=== PATIENT | female | born 1935 | race Caucasian/White ===

== ENCOUNTER → 2017-06-25 | Outpatient (CLI) | payer OTHER | LOC: GIMAGING 11:17 | PROVIDERS: ATTEND Nurse Practitioner | DX: J40 Bronchitis, not specified as acute or chronic (principal) | CPT/HCPCS: 71020-PO ==

== ENCOUNTER 2018-07-28 10:33 | Observation (INO) | payer OTHER ==
--- NOTE | 2018-07-28 11:13 | EDPHY ---
H & P Stated Complaint: "vertigo" x 1 week, generilized weakness x 2-3 days - Personal History Current Tetanus Diphtheria and Acellular Pertussis (TDAP): No - Medical/Surgical History Hx Asthma: No Hx Chronic Respiratory Disease: No Hx Diabetes: No Hx Cardiac Disease: No Hx Renal Disease: No Hx Cirrhosis: No Hx Alcoholism: No Hx HIV/AIDS: No Hx Splenectomy or Spleen Trauma: No Other PMH: depression - Social History Smoking Status: Never smoked Time Seen by Provider: 07/28/18 10:47 HPI/ROS: CHIEF COMPLAINT: "I've got vertigo" HISTORY OF PRESENT ILLNESS: 83-year-old female generally healthy complaining of 7 days of non thunderclap headache, dizziness. The patient describes no specific pattern to her dizziness, describing that sometimes she was her head she will experience however most the time she is sitting still she just feels as if she is listing to 1 side and needs to balance herself. She also notes that her legs do not seem to function as they normally do for the past 2 days. No history of head injury. No history neck manipulation or trauma. Her has been assisting her at home PRIMARY CARE PROVIDER: Dr. Natalia Vivas REVIEW OF SYSTEMS: 10 systems reviewed and negative with the exception of the elements mentioned in the history of present illness PAST MEDICAL & SURGICAL HISTORY: No anticoagulant use. SOCIAL HISTORY: . PHYSICAL EXAM (Prior to examination, patient consented to physical exam, hands were washed and my usual and customary physical exam procedures followed) 1) GENERAL: Well-developed, well-nourished, alert and oriented. Appears to be in no acute distress. 2) HEAD: Normocephalic, atraumatic 3) HEENT: Pupils equal, round, reactive to light bilaterally. Sclera anicteric. Nasopharynx, oropharynx, clear, no lesions. MoistDry mucous membranes. Ears bilaterally with normal tympanic membranes. 4) NECK: Full range of motion, no meningeal signs. 5) LUNGS: Clear auscultation bilaterally, no wheezes, no rhonchi, no retractions. 6) HEART: Regular rate and rhythm, no murmur, no heave, no gallop. 7) ABDOMEN: No guarding, no rebound, no focal tenderness, negative McBurney's, negative Melendez's, negative Rovsing's, negative peritoneal sign, 8) MUSCULOSKELETAL: Moving all extremities, no focal areas of tenderness, no obvious trauma. No peripheral edema or discoloration. 9) BACK: No CVA tenderness, no midline vertebral tenderness, no fluctuance, no step-off, no obvious trauma, no visual or palpable abnormality. 10) SKIN: No rash, no petechiae. 11) Psychiatric: Patient is oriented X 3, there is no agitation. 12) NEURO: Awake, alert, and oriented to person, place and time. Answers questions appropriately. There were no obvious focal neurologic abnormalities. No cerebellar dysfunction. Cranial nerves 2 through to 12 intact. Unable to ambulate without leaning on other individual. Upper and lower extremities bilaterally with strength 5 / 5, reflexes 2+. DIFFERENTIAL DIAGNOSIS: In no particular order including but not limited to benign positional vertigo, Meniere disease, malignancy, intracranial hemorrhage , cerebellar stroke (Fabián,Bharti Maria E) Constitutional: Initial Vital Signs Temperature (C) 36.5 C 07/28/18 10:40 Heart Rate 68 07/28/18 10:40 Respiratory Rate 16 07/28/18 10:40 Blood Pressure 162/87 H 07/28/18 10:40 O2 Sat (%) 97 07/28/18 10:40 O2 Delivery Mode Room Air Allergies/Adverse Reactions: amoxicillin trihydrate [From Augmentin] Allergy (Intermediate, Verified 15:13) SYNCOPE/NAUSEA potassium clavula *RETIRED-04/16/12 [From Augmentin] Allergy (Intermediate, Verified 06/03/10 15:13) SYNCOPE/NAUSEA codeine [Codeine] Allergy (Unknown, Verified 06/03/10 15:13) lisinopril Allergy (Verified 07/28/18 10:42) CATS/DOGS/BIRDS Allergy (Mild, Uncoded 06/03/10 15:14) NASAL CONGESTION ENVIRONMENTAL Allergy (Mild, Uncoded 06/03/10 15:15) NASAL CONGESTION POLLENS Allergy (Mild, Uncoded 06/03/10 15:14) NASAL CONGESTION Home Medications: Medication Instructions Recorded Albuterol [Proventil Inhaler HFA 1 - 2 puffs IH Q4H PRN 07/28/18 (*)] Aspirin EC [Aspirin EC 81 mg (*)] 81 mg PO HS 07/28/18 Dimenhydrinate [Dramamine] 25 mg PO DAILY PRN 07/28/18 Ibuprofen [Motrin (*)] 200 mg PO Q4 PRN 07/28/18 PARoxetine HCL [Paroxetine ER] 12.5 mg PO DAILY 07/28/18 cycloSPORINE 0.05% [Restasis Opht 1 drop EACHEYE HS 07/28/18 Drops(*)] Medical Decision Making - Diagnostics Imaging Results: Imaging Impressions Head CT 07/28/18 11:30 Impression: 1. Chronic sinus changes, greatest involving the maxillary sinuses. 2. Prominent left external auditory canal cerumen. Results called to WINNIE Zhang at 1:08 PM. General information for patients regarding this examination can be found at [employer]. If you have questions or comments about this report, please contact me at (hospital) or [phone] (cell). Head CTA 07/28/18 11:30 Impression: Negative CT angiogram of the brain. No source for dizziness identified. Results discussed with WINNIE Zhang at 1:27 PM. Images reviewed myself (Bharti Lockwood) ED Course/Re-evaluation: 2:40 p.m. I I spoke with the patient about her symptoms which are concerning for posterior CVA. These were not easily be seen on the CT scan. I recommended admission and sedation for MRI. She agreed with this plan. (Arun Fisher) 11:11 a.m.: I have evaluated the patient. She is complaining of dizziness and listing to the side for the past 7 days as well as feeling that legs are not functioning as a normally should. She has no focal neurologic deficits on exam. Recommended MRI. Patient is adamant that she cannot have an MRI due to claustrophobia. She agrees only to a CT scan of the head as well as basic laboratory studies. I discussed limitations of CT imaging with the patient. I believe her to have decision-making capacity. She is a retired nurse. 2:07 p.m.: Re-evaluation. Reviewed the patient her imaging studies. She remains symptomatic. Once again, I recommended MRI and admission however she declines this. I believe her to have decision-making capacity. States that she would like to follow up on outpatient basis with a neurologist. Informed the patient that if she return to the ER at any point for re-evaluation. This conversation was witnessed by her . She would like to know whether she could see neurologist next week (today is Monday). Will contact Neurology. 2:15 p.m.: Phone consultation Dr. Homer Alarcon who agrees to see the patient 2:35 p.m.: Patient was seen exam by Dr. Arun Fisher in the ER and patient agrees to admission to hospital (Bharti Lockwood) - Data Points Laboratory Results: Laboratory Results 07/28/18 11:25 07/28/18 11:25 07/28/18 07/28/18 07/28/18 12:02 11:25 11:25 WBC 6.36 10^3/uL 10^3/uL (3.80-9.50) RBC 4.59 10^6/uL 10^6/uL (4.18-5.33) Hgb 14.4 g/dL g/dL (12.6-16.3) POC Hgb 14.6 gm/dL gm/dL (12.6-16.3) Hct 42.8 % % (38.0-47.0) POC Hct 43 % % (38-47) MCV 93.2 fL fL (81.5-99.8) MCH 31.4 pg pg (27.9-34.1) MCHC 33.6 g/dL g/dL (32.4-36.7) RDW 13.1 % % (11.5-15.2) Plt Count 246 10^3/uL 10^3/uL (150-400) MPV 9.4 fL fL (8.7-11.7) Neut % (Auto) 54.2 % % (39.3-74.2) Lymph % (Auto) 33.2 % % (15.0-45.0) [place] % (Auto) 7.7 % % (4.5-13.0) Eos % (Auto) 3.5 % % (0.6-7.6) Baso % (Auto) 1.1 % % (0.3-1.7) Nucleat RBC Rel Count 0.0 % % (0.0-0.2) Absolute Neuts (auto) 3.45 10^3/uL 10^3/uL (1.70-6.50) Absolute Lymphs (auto) 2.11 10^3/uL 10^3/uL (1.00-3.00) Absolute Monos (auto) 0.49 10^3/uL 10^3/uL (0.30-0.80) Absolute Eos (auto) 0.22 10^3/uL 10^3/uL (0.03-0.40) Absolute Basos (auto) 0.07 10^3/uL 10^3/uL (0.02-0.10) Absolute Nucleated RBC 0.00 10^3/uL 10^3/uL (0-0.01) Immature Gran % 0.3 % % (0.0-1.1) Immature Gran # 0.02 10^3/uL 10^3/uL (0.00-0.10) POC Sodium 141 mEq/L mEq/L (135-145) Sodium 140 mEq/L mEq/L (135-145) POC Potassium 4.2 mEq/L mEq/L (3.3-5.0) Potassium 4.6 mEq/L mEq/L (3.5-5.2) POC Chloride 105 mEq/L mEq/L (97-110) Chloride 107 mEq/L mEq/L (97-110) Carbon Dioxide 26 mEq/l mEq/l (22-31) Anion Gap 7 mEq/L mEq/L (6-14) POC BUN 24 mg/dL H mg/dL (7-23) BUN 26 mg/dL H mg/dL (7-23) Creatinine 0.9 mg/dL mg/dL (0.6-1.0) POC Creatinine 0.9 mg/dL mg/dL (0.6-1.0) Estimated GFR 60 Glucose 90 mg/dL mg/dL (70-100) POC Glucose 87 mg/dL mg/dL (70-100) Calcium 9.8 mg/dL mg/dL (8.5-10.4) Medications Given: Discontinued Medications Sodium Chloride (Ns) 1,000 mls @ 0 mls/hr IV ONCE ONE PRN Reason: Wide Open Stop: 07/28/18 13:24 Last Admin: 07/28/18 13:30 Dose: 1,000 mls Point of Care Test Results: Chemistry 07/28/18 12:02 POC Sodium 141 mEq/L mEq/L (135-145) POC Potassium 4.2 mEq/L mEq/L (3.3-5.0) POC Chloride 105 mEq/L mEq/L (97-110) POC BUN 24 mg/dL H mg/dL (7-23) POC Creatinine 0.9 mg/dL mg/dL (0.6-1.0) POC Glucose 87 mg/dL mg/dL (70-100) ISTAT H&H 07/28/18 12:02 POC Hgb 14.6 gm/dL gm/dL (12.6-16.3) POC Hct 43 % % (38-47) Departure - Departure Disposition: [facility] Inpatient Acute Clinical Impression: Dizziness Condition: Good
[2018-07-28 11:50] LABS: PLATELET COUNT 246 10^3/uL (150-400)
[2018-07-28] MEDS ORDERED: IOPAMIDOL (ISOVUE 370) 100 ML BTL IV ONE (11:54)
[2018-07-28] MEDS ORDERED: NS 1,000 ML IV ONE (13:23)
[2018-07-28] MEDS ORDERED: ALBUTEROL 60 PUFFS/8 GM MDI IH PRN (17:09)
[2018-07-28] MEDS ORDERED: DIMENHYDRINATE 25 MG PO PRN (17:09)
[2018-07-28] MEDS ORDERED: METOPROLOL TARTRATE 5 MG/5 ML INJ IVP PRN (17:11)
[2018-07-28] MEDS ORDERED: hydrALAZINE 20 MG/ML VIAL IVP PRN (17:11)
[2018-07-28] MEDS ORDERED: HYDROCODONE/APAP 5/325 TAB PO PRN (17:12)
[2018-07-28] MEDS ORDERED: ACETAMINOPHEN 325 MG TAB PO PRN (17:12)
[2018-07-28] MEDS ORDERED: LABETALOL HCL 5 MG/ML 20 ML MDV IVP PRN (17:12)
[2018-07-28] MEDS ORDERED: OXYCODONE/APAP 5/325 TAB PO PRN (17:12)
[2018-07-28] MEDS ORDERED: PROMETHAZINE HCL 25 MG/ML INJ IVP PRN (17:12)
[2018-07-28] MEDS ORDERED: GADOBUTROL 10 ML VIAL IVP ONE (17:40)
[2018-07-28] MEDS ORDERED: fentaNYL 100 MCG/2 ML INJ ONE (17:45)
[2018-07-28] MEDS ORDERED: PROPOFOL 200 MG/20 ML VIAL ONE (17:58)
[2018-07-28] MEDS ORDERED: NALOXONE HCL 0.4 MG/ML INJ IVP PRN (19:17)
[2018-07-28] MEDS ORDERED: ALBUTEROL 3 ML DEYVIAL IH PRN (19:17)
[2018-07-28] MEDS ORDERED: ONDANSETRON 4 MG/2 ML VIAL IVP PRN (19:17)
--- NOTE | 2018-07-28 19:17 | PDANEPAE ---
ANE Past Medical History - Pulmonary History Hx Oxygen in Use at Home: No Hx Sleep Apnea: No - Endocrine History Hx Diabetes: No - Chronic Pain History Chronic Pain: No ANE Review of Systems Review of Systems: ANE Patient History - Allergies Allergies/Adverse Reactions: amoxicillin trihydrate [From Augmentin] Allergy (Intermediate, Verified 15:13) SYNCOPE/NAUSEA potassium clavula *RETIRED-04/16/12 [From Augmentin] Allergy (Intermediate, Verified 06/03/10 15:13) SYNCOPE/NAUSEA codeine [Codeine] Allergy (Unknown, Verified 06/03/10 15:13) lisinopril Allergy (Verified 07/28/18 10:42) CATS/DOGS/BIRDS Allergy (Mild, Uncoded 06/03/10 15:14) NASAL CONGESTION ENVIRONMENTAL Allergy (Mild, Uncoded 06/03/10 15:15) NASAL CONGESTION POLLENS Allergy (Mild, Uncoded 06/03/10 15:14) NASAL CONGESTION - Home Medications Home Medications: Albuterol [Proventil Inhaler HFA (*)] 1 - 2 puffs IH Q4H PRN 07/28/18 [Last Taken 07/27/18] Aspirin EC [Aspirin EC 81 mg (*)] 81 mg PO HS 07/28/18 [Last Taken 07/26/18] Dimenhydrinate [Dramamine] 25 mg PO DAILY PRN 07/28/18 [Last Taken 07/28/18] Ibuprofen [Motrin (*)] 200 mg PO Q4 PRN 07/28/18 [Last Taken 07/27/18] PARoxetine HCL [Paroxetine ER] 12.5 mg PO DAILY 07/28/18 [Last Taken 07/27/18] cycloSPORINE 0.05% [Restasis Opht Drops(*)] 1 drop EACHEYE HS 07/28/18 [Last Taken 07/27/18] - Smoking Hx Smoking Status: Never smoked ANE Labs/Vital Signs - Labs Result Diagrams: 07/28/18 11:25 07/28/18 11:25 - Vital Signs Blood Pressure: 147/71 Heart Rate: 67 Respiratory Rate: 16 O2 Sat (%): 99 Height: 170.18 cm Weight: 86.9 kg ANE Physical Exam - Airway Neck exam: FROM Mallampati Score: Class 3 Mouth exam: normal dental/mouth exam - Pulmonary Pulmonary: no respiratory distress - Cardiovascular Cardiovascular: regular rate and rhythym - ASA Status ASA Status: II ANE Anesthesia Plan Anesthesia Plan: GA w LMA
--- NOTE | 2018-07-28 19:18 | POSTANESTH ---
Post Anesthetic Evaluation Cardiovascular Status: Similar to Pre-Op Cond Respiratory Status: Similar to Pre-op Cond. Level of Consciousness/Mental Status: Alert and Oriented Pain Control: Adequate, Prn Tx Ordered Nausea/Vomiting Control: Adequate, Prn Tx Ordered Complications Possibly Related to Anesthesia: None Noted
[2018-07-28] MEDS ORDERED: LIDOCAINE 2% 2 ML INJ ONE (19:25)
[2018-07-28] MEDS ORDERED: METOCLOPRAMIDE 10 MG/2 ML VIAL ONE (19:25)
[2018-07-28] MEDS ORDERED: RANITIDINE 50 MG/2 ML VIAL ONE (19:25)
[2018-07-28] MEDS ORDERED: cycloSPORINE 0.05% 30 DROPERETTE/BOX EACHEYE SCH (21:00)
[2018-07-28] MEDS ORDERED: ASPIRIN EC 81 MG TAB PO SCH (21:00)
--- NOTE | 2018-07-28 23:17 | PDGENHP ---
History and Physical History and Physical: Chief complaint: Leg weakness, vertigo History of present illness: Pt is an 83yo F who p/w vertigo and leg weakness that started 1 week ago. She has been battling URI with sinusitis/bronchitis for 1 month. She had vertigo that was severe enough to confine her to bed for 1- 2 days. It was worse with changes in position. When she tried to get out of bed , she continued to have vertigo and felt like her legs were "jelly" and difficult to control. She continues to have difficulty walking and needs to hold on to someone for support to avoid falling. She admits that her bilateral shins feel numb/tingly. She denies loss of bowel/bladder function. Dizziness is better with meclizine and Dramamine. Past medical history: ankylosing spondylitis/Sjogren type syndrome, OA polyarthropathy, spinal stenosis. Past surgical history: cholecystectomy, tonsillectomy, D&C Medications: Paroxetine, Dramamine, Restasis, aspirin, Proventil, ibuprofen. Allergies:Augmentin. Social history: , lives w/ . Denies alcohol, smoking, drugs. Retired RN. Family history: noncontributory. Review of systems: 10 point review of systems was conducted and is negative except per HPI Physical exam: Vitals: Reviewed General: The patient is a female who is A&Ox3 and in no acute distress. HEENT: normocephalic, extraocular movements intact, conjunctivae clear, no lesions on face or pinnae. Nares and oral mucosa pink and moist. Neck: trachea midline, no visible masses, no external lesions. CV: +S1/S2, reg rate and rhythm. No murmurs/rubs/gallops. Resp: unlabored breathing, lungs clear to auscultation w/o rales, rhonchi, or wheezing. Abd: soft and nondistended, bowel sounds present. Nontender to palpation throughout. Musculoskeletal: Abnormal gait - shuffling, small steps - appears off balance. Neuro: cranial nerves II - XII grossly intact. 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 Fine touch sensation intact bilateral upper and lower extremities. Psych: appropriate mood/affect. Skin: No rash or ecchymoses or petechiae. : no suprapubic tenderness or CVA tenderness. Heme/lymph: No peripheral edema. Labs: WBC 6.36, hemoglobin 14.4, sodium 141 potassium 4.2 BUN 26 creatinine 0.9 Other Data: Head CTA: Negative. Head CT: Chronic sinus changes, greatest involving maxillary sinuses. Prominent left external auditory canal cerumen. Impression and plan: Vertigo, new onset B/l leg weakness Gait abnormality -MRI head. -PT/OT consult. -DDx etiology - acute CVA (rule out by MRI), labyrinthitis or BPPV +muscle deconditioning, post-infectious inflammatory demyelinating disease (GBS, CIDP, etc). -Pt may FU w/ Neuro as outpt if Sx persist. ED had called Dr. Alarcon who agrees to see pt in office. Chronic sinusitis Recent bronchitis Cerumen impaction -cerumen disimpaction may be done as an outpatient. -trial of Debrox eardrops -Start antibiotic - Keflex x 5-7 days. -discussed that steroid can help w/ inflammation of middle ear - trial of prednisone x 3 days. VTE ppx - low risk. Code status - full. Observation status.
[2018-07-28] MEDS: CEPHALEXIN 500 MG CAP PO SCH (23:49)
[2018-07-29] MEDS ORDERED: PARoxetine CR 12.5 MG TAB PO SCH (09:00)
[2018-07-29] MEDS ORDERED: predniSONE 20 MG TAB PO SCH (09:00)
[2018-07-29] MEDS ORDERED: CARBAMIDE PEROXIDE 15 ML OTIC.BTL EACHEAR SCH (09:00)
[2018-07-29 11:56] VITALS: BP 150/72
[2018-07-29] MEDS: CEPHALEXIN 500 MG CAP PO SCH (12:47)
--- NOTE | 2018-07-29 14:02 | ASMTCMCOM ---
CM Note CM Note Notes: Patient chart reviewed. 83 year old female with one week of vertigo after recent URI . She was admitted last evening through the ED, Family is very upset she has not been seen yet today. Lives Independently with her . No needs anticipated at this time. CM available should needs arise. Plan: Dc independent. Date Signed: 07/29/2018 02:02 PM Electronically Signed By:Adina Dillon RN
--- NOTE | 2018-07-29 14:32 | ASMTLACE ---
LACE Length of stay for Answers: Less than 1 day current admission # of Emergency department Answers: 1-2 visits in the last 6 months Score: 1 Date Signed: 07/29/2018 02:32 PM Electronically Signed By:Adina Dillon RN
--- NOTE | 2018-07-29 14:34 | ASMTDCNOTE ---
Case Management Discharge Discharge Order Complete? Answers: Yes Patient to Obtain Answers: Other Notes: No meds Medications Transportation Arranged Answers: Family/Friends Family Notified Answers: Yes Discharge Comments Notes: Patient medically cleared for discharge to home no needs at this time. Date Signed: 07/29/2018 02:34 PM Electronically Signed By:Adina Dillon RN
--- NOTE | 2018-07-29 18:08 | GDS ---
DISCHARGE DIAGNOSIS: Benign paroxysmal positional vertigo. HISTORY OF PRESENT ILLNESS: The patient is a pleasant 83-year-old female who presented to the [facility] with vertigo and leg weakness. The initial concern was for possible stroke symp toms, and Neurology was consulted. Brain MRI did not show any evidence of an acute stroke. In furth er discussion with the patient, she clearly describes a vertiginous sensation that lasts less than 1 minute with turning of her head consistent with benign paroxysmal positional vertigo. At the time of my evaluation on the day of discharge, her lower extremity weakness she states has resolved. She fe lt that it may have been related to some weakness developed from lying in bed over the past days. To day she states that she is not having any additional vertigo and is quite ready to be discharged from the hospital. PHYSICAL EXAMINATION: GENERAL: Exam on day of discharge stable. Patient sitting upright in bed in no acute distress. HEART: Regular. No murmurs. No carotid bruit. LUNGS: Clear with normal respi ratory effort. ABDOMEN: Soft, nontender, nondistended. : No Arvizu catheter in place. EXTREMITI ES: No significant pitting edema. Strength appears to be 5/5 in extremities. NOTABLE STUDIES: MRI brain normal. MRI of the brain with and without contrast: Moderate bilateral maxillary and right ethmoid sinus disease. Head CTA: Negative CT angiogram of the brain. CT head w ithout contrast: Chronic sinus changes greatest involving the maxillary sinuses, prominent left exte rnal auditory canal cerumen. DISCHARGE MEDICATIONS: In short, no medication changes were made during this hospitalization. Albut abundio 1-2 puffs every 4 hours as needed, aspirin 81 mg nightly, Restasis eyedrops, paroxetine 12.5 mg ER daily. DISCHARGE INSTRUCTIONS: I recommended a consultation with ENT to address the cerumen noted on CT annie ging. Otherwise, I think she can schedule a followup visit with her primary provider as previously get vila. /[id number]/MODL
--- NOTE | 2018-07-29 19:54 | GCON ---
NEUROLOGIC CONSULTATION REFERRING PHYSICIAN: Kendal Lin DO HISTORY: The patient is an 83-year-old woman who I am asked to see in neurologic consultation regard ing vertigo. She says about 8 days ago, she woke up with a rather severe case of vertigo to the poin t that she could not sit up. She says she would lie in the bed for almost 24 hours with hardly movin g because she felt so uncomfortable. Over the next few days, she started to become more active and w as able to participate in activities but could still feel variable degrees of abnormal balance. Some times, she was able to be out and about and did not have an obvious component of head turning that tr iggered it. She then received some [id number] meclizine or Antivert and was able to maintain r easonably good control of symptoms until yesterday when it was more problematic with her balance. Riddhi hdz was needing to hold onto somebody to help keep her balance. She went to Urgent Care, but then was advised to go to the emergency room and subsequently had head CT, CT angiogram of the head and brain MRI, which are all unremarkable. She was admitted for observation. She has received a dose of predn isone and also received Keflex. She feels much better and is not complaining of vertigo currently. At no point was she having chest pain, palpitations or shortness of breath. She did not have focal numbness or weakness. In the last month, she said she and her both dealt with a significant upper respiratory infection, but t hat is mostly resolved except for some mild residual cough and she has not been feeling sick otherwis e. She denies any development of distal paresthesias or confusional state. PAST MEDICAL HISTORY: Ankylosing spondylitis with Sjogren type syndrome, osteoarthritis, and spinal stenosis. SOCIAL HISTORY: She is a retired nurse. She lives with her . No alcohol, smoking, or drug u se. FAMILY HISTORY: Noncontributory. MEDICATIONS: Ibuprofen, Proventil, aspirin, Restasis, Dramamine and paroxetine. ALLERGY: Augmentin. REVIEW OF SYSTEMS: My 10-point review of systems was completed and unremarkable except for that note d above. PHYSICAL EXAM: VITAL SIGNS: Temperature is 36.6 degrees Celsius, blood pressure 163/68, pulse of 64 , respirations 17. GENERAL: She is mildly overweight, in no acute distress. EYES: Clear. NECK: Supple. No bruits or masses. No supraclavicular bruits. CARDIAC: Regular rate and rhythm. No mur mur. EXTREMITIES: No cyanosis or edema. No skin rash. HEENT: Pupils 2 mm and reactive. Extraocu lar movements are intact with no nystagmus. Normal facial sensation and strength. Palate elevates s ymmetrically. Tongue protrudes midline. Hearing is mildly diminished to direct conduction on the ri ght without any lateralization on the Holliday test. MUSCULOSKELETAL: Motor exam: Normal muscle bulk and tone, 5/5 strength with no abnormal movements. Sensation is preserved for temperature and light touch. No ataxia on [id number]. She is able to stand up independently without loss of balance. Negative Romberg test. Her gait is characterized by being cautious but she walks independently and is not ataxic. Reflexes 2+ and symmetric with no pathologic reflexes. LABS: CBC is unremarkable. Electrolytes unremarkable. LDL cholesterol is 143, HDL cholesterol 40. IMAGING: Imaging of the brain has been reviewed. Unremarkable brain imaging. IMPRESSION: I believe the patient probably has a benign vestibulopathy, probably related to having e xperienced a recent prolonged upper respiratory infection. Benign positional vertigo is also possibl e as the initial presentation was so typical of that. However, other benign vestibular inflammatory syndromes are within the differential diagnosis, but highly nonspecific overall. She does not have e vidence of cerebral ischemia, multiple sclerosis, mass lesions. Therefore, with a normal neurologic exam now and unremarkable imaging, I think it is safe for her to be discharged. I do not think she l ikely needs a long course of antibiotics, but will defer to hospitalist Medicine on that point. I wo uld not continue steroid once she is discharged from the hospital, but she can follow up with us as a n outpatient and we would send her to vestibular therapy if symptoms recur. I gave her reassurance a s well as her that this is likely to be a condition for which she has full resolution and she is comfortable with that approach. TOTAL UNIT TIME: 55 minutes. /[id number]/MODL
== END 2018-07-29 14:38 | disposition home or self-care (01) ==
LOC: F3N 14:33
PROVIDERS: ADMIT Internal Medicine; ATTEND Internal Medicine
DX: H81.10 Benign paroxysmal vertigo, unspecified ear (principal); R53.1 Weakness; M19.90 Unspecified osteoarthritis, unspecified site; R26.9 Unspecified abnormalities of gait and mobility; J32.0 Chronic maxillary sinusitis; J32.2 Chronic ethmoidal sinusitis
CPT/HCPCS: 70450; 70496; 70553; 97116; 97161; 97166; A9585; G0378; G8978; G8979; G8987; G8988; G8989; J2704; J2765; J2780; J3010; J7512; Q9967; 82435-PO; 82565-PO; 82947-PO; 84132-PO; 84295-PO; 84520-PO; 85014-PO